=== PATIENT | female | born 1960 | race Caucasian/White ===

== ENCOUNTER 2023-07-16 06:43 | Day surgery (SDC) | payer OTHER ==
[~2023-07-16] VITALS: Ht 162.6 cm; Wt 90.7 kg
[2023-07-16 07:30] LABS: BASOPHILS % (AUTO) 0.7 % (0.0-2.0); EOSINOPHILS # (AUTO) 0.2 K/uL (0-0.4); EOSINOPHILS % (AUTO) 2.3 % (0.0-4.0); HEMATOCRIT 40.2 % (36-48); HEMOGLOBIN 13.5 g/dL (12.0-16.0); LYMPHOCYTES # (AUTO) 2.1 K/uL (2.5-16.5); MEAN CORPUSCULAR HEMOGLOBIN 29 pg (27-31); MEAN CORPUSCULAR HGB CONC 33 g/dL (33-37); MEAN CORPUSCULAR VOLUME 85.5 fL (80-94); MONOCYTES # (AUTO) 0.4 K/uL (0.8-1.0); MONOCYTES % (AUTO) 6.1 % (1.7-9.3); NEUTROPHILS # (AUTO) 4.3 K/uL (1.8-7.7); NEUTROPHILS % (AUTO) 60.9 % (42.2-75.2); PLATELET COUNT (AUTO) 245 K/uL (140-450); RED BLOOD CELL COUNT(AUTO) 4.71 MIL/uL (4.20-5.40); RED CELL DISTRIBUTION WIDTH 14.5 % (11.6-13.7); WHITE BLOOD COUNT (AUTO) 7.1 K/uL (4.8-10.8)
[2023-07-16 08:21] LABS: INR 1.03 (0.8-1.2); PARTIAL THROMBOPLASTIN TIME 26.4 secs (22-35.6); PROTHROMBIN TIME 10.8 secs (10.8-13.4)
[2023-07-16] MEDS ORDERED: LIDOCAINE 2% 1000 MG/50 ML VIAL INJ ONE (10:16)
[2023-07-16] MEDS ORDERED: fentaNYL citrate 0.05 MG/ML VIAL ONE (10:19)
== END 2023-07-16 11:55 | disposition home or self-care (01) ==
LOC: MOR 06:43 → MMU 06:45 → MOR 11:55
PROVIDERS: ATTEND Internal Medicine Gastroenterology
DX: K75.81 Nonalcoholic steatohepatitis (NASH) (principal); I10 Essential (primary) hypertension; E78.5 Hyperlipidemia, unspecified; E11.9 Type 2 diabetes mellitus without complications; Z98.890 Other specified postprocedural states; G47.30 Sleep apnea, unspecified; Z99.89 Dependence on other enabling machines and devices; Z79.899 Other long term (current) drug therapy
CPT/HCPCS: 36415; 47000; 76942; 82948; 85025; 85610; 85730; J2001; Q0092; J3010